=== PATIENT | female | born 1990 | race Caucasian/White ===

== ENCOUNTER 2019-12-26 10:01 | Emergency (ER) | payer BC ==
[~2019-12-26] VITALS: Ht 177.8 cm; Wt 95.5 kg
[~2019-12-26 10:01] MED LIST: PRENATAL1 TA1 PO
[2019-12-26 10:14] VITALS: TEMP 98.7
[2019-12-26 10:51] LABS: BASO % 0.5 % (0.0-2.0); EOS # 0.1 (0.0-0.7); EOS % 1.2 % (0-4.0); GRAN # 4.1 (1.4-6.5); GRAN % 62.1 % (42.2-75.2); HEMATOCRIT 43.1 % (37.0-47.0); HEMOGLOBIN 14.8 g/dl (12.5-16.0); LYMPH # 1.9 (1.2-3.4); LYMPH % 28.8 % (20.0-51.0); MEAN CELL VOLUME 92 fl (80.0-100.0); MEAN CORPUSCULAR HEMOGLOBIN 32 pg (27.0-31.0); MEAN CORPUSCULAR HGB CONC 34 g/dl (33.0-37.0); MEAN PLATELET VOLUME 9.8 fl (7.4-10.4); MONO # 0.5 (0.1-0.6); MONO % 7.1 % (1.7-9.3); PLATELET COUNT 245 K/mm3 (130-400); REDCELL DISTRIBUTION WIDTH-CV 11.7 % (11.5-14.5)
[2019-12-26 11:51] LABS: COLLECTION METHOD CLEAN CATCH
[2019-12-26 12:05] LABS: MUCOUS Present /lpf; PH 8 (5-8); URINE APPEARANCE Cloudy; URINE BACTERIA None Seen /hpf; URINE BILIRUBIN Negative (NEGATIVE); URINE BLOOD 2+ (NEGATIVE); URINE COLOR Yellow; URINE GLUCOSE Negative (NEGATIVE); URINE KETONE Negative (NEGATIVE); URINE LEUKOCYTE ESTERASE 3+ (NEGATIVE); URINE NITRATE Negative (NEGATIVE); URINE PROTEIN(semi-quant) 1+ (NEGATIVE); URINE RBC 0-2 /hpf; URINE UROBILINOGEN Negative (NEGATIVE)
[2019-12-26] MEDS ORDERED: ZOFRAN ODT4 MG PO (13:13)
[2019-12-26] MEDS ORDERED: CEFTIN500 MG PO (13:18)
[2019-12-26 13:37] VITALS: BP 120/83; PULSE 71
== END 2019-12-26 13:39 | disposition home or self-care (01) ==
LOC: COL.ER 10:01
PROVIDERS: Physician Assistant
DX: N39.0 Urinary tract infection, site not specified (principal); N83.201 Unspecified ovarian cyst, right side; Z32.02 Encounter for pregnancy test, result negative
CPT/HCPCS: J1885; J2405; J2550; J7030

== ENCOUNTER 2020-01-04 22:38 | Emergency (ER) | payer BC ==
[~2020-01-04 22:38] MED LIST changes: +CEFTIN500 MG PO; +ZOFRAN ODT4 MG PO
[2020-01-04 22:45] VITALS: BP 136/83; TEMP 97.9
[2020-01-04 23:32] LABS: COLLECTION METHOD CLEAN CATCH
[2020-01-04 23:35] LABS: BASO # 0.1 (0.0-0.2); BASO % 0.5 % (0.0-2.0); EOS # 0.1 (0.0-0.7); EOS % 1.3 % (0-4.0); GRAN # 5.4 (1.4-6.5); GRAN % 55.6 % (42.2-75.2); HEMATOCRIT 40.9 % (37.0-47.0); HEMOGLOBIN 13.9 g/dl (12.5-16.0); LYMPH # 3.2 (1.2-3.4); LYMPH % 32.8 % (20.0-51.0); MEAN CELL VOLUME 94 fl (80.0-100.0); MEAN CORPUSCULAR HEMOGLOBIN 32 pg (27.0-31.0); MEAN CORPUSCULAR HGB CONC 34 g/dl (33.0-37.0); MEAN PLATELET VOLUME 9.9 fl (7.4-10.4); MONO # 0.9 (0.1-0.6); MONO % 9.6 % (1.7-9.3); PLATELET COUNT 245 K/mm3 (130-400); RED BLOOD COUNT 4.37 M/mm3 (4.10-5.30); REDCELL DISTRIBUTION WIDTH-CV 11.8 % (11.5-14.5)
[2020-01-04 23:47] LABS: ALBUMIN 4.3 gm/dL (3.5-5.0); BILIRUBIN,TOTAL 0.4 mg/dL (0.0-1.0); C-REACTIVE PROTEIN 1.2 mg/dL (0.0-0.9); CALCIUM 9.4 mg/dL (8.4-10.2); CREATININE, serum 0.74 (0.52-1.25); POTASSIUM 3.4 mmol/L (3.4-5.0); TOTAL PROTEIN 7.5 gm/dL (6.4-8.2)
[2020-01-04 23:51] LABS: AMORPHOUS CRYSTAL Present /uL; PH 7 (5-8); URINE APPEARANCE Hazy; URINE BACTERIA None Seen /hpf; URINE BILIRUBIN Negative (NEGATIVE); URINE BLOOD Negative (NEGATIVE); URINE COLOR Yellow; URINE GLUCOSE Negative (NEGATIVE); URINE KETONE Negative (NEGATIVE); URINE LEUKOCYTE ESTERASE Negative (NEGATIVE); URINE NITRATE Negative (NEGATIVE); URINE PROTEIN(semi-quant) Negative (NEGATIVE)
[2020-01-05] MEDS ORDERED: NORCO 325 MG-51 TAB PO (01:06)
[2020-01-05] MEDS ORDERED: ZOFRAN 4MG T4 MG/TAB PO (01:06)
[2020-01-05 01:14] VITALS: PULSE 91
== END 2020-01-05 01:13 | disposition home or self-care (01) ==
LOC: COL.ER 22:38
PROVIDERS: Nurse Practitioner Primary Care
DX: N20.1 Calculus of ureter (principal); F17.210 Nicotine dependence, cigarettes, uncomplicated; Z32.02 Encounter for pregnancy test, result negative; Z79.891 Long term (current) use of opiate analgesic; Z79.83 Long term (current) use of bisphosphonates
CPT/HCPCS: J2270; J7030; Q9967